=== PATIENT | female | born 1960 | race American Indian/Alaskan Native ===

== ENCOUNTER 2017-09-08 14:26 | Emergency (ER) | payer MEDICARE ==
[2017-09-08 14:40] VITALS: BP 138/73
== END 2017-09-08 16:22 | disposition left against medical advice (07) ==
LOC: ED 14:26
DX: G35 Multiple sclerosis (principal); Z53.21 Procedure and treatment not carried out due to patient leaving prior to being seen by health care provider

== ENCOUNTER 2021-11-26 05:35 | Emergency (ER) | payer MEDICARE ==
[2021-11-26 08:23] VITALS: BP 147/70
[2021-11-26] MEDS ORDERED: diphenhydrAMINE 50 MG/ML VIAL IV ONE (09:47)
[2021-11-26] MEDS ORDERED: SODIUM CHLORIDE 0.9% 1000 ML 1,000 ML IV ONE (09:47)
[2021-11-26] MEDS ORDERED: FAMOTIDINE 20 MG/2 ML INJ IV ONE (09:47)
--- NOTE | 2021-11-26 10:33 | Emergency Department Report ---
ED Allergic Reaction HPI - General Chief complaint: Pain General Stated complaint: ADVERSE REACTION TO MEDS Time Seen by Provider: 11/26/21 09:24 Source: patient Mode of arrival: Ambulatory Limitations: No Limitations - History of Present Illness Initial Comments: This is a 61-year-old female nontoxic, well nourished in appearance, no acute signs of distress presents to the ED with c/o of diffuse itching sensation x several days. Patient stated was taking Abagio and was instrcuted to stop today due to possible allergic reaction. Otherwise, denies any rash. Patient denies any drooling, hoarseness or facial swelling. Patient denies any trauma. She denies any fever, chills, nausea, vomiting, chest pain, shortness of breath, headache, stiff neck, numbness or tingling. Patient states allergies to shellfish and aspirin. MD Complaint: allergic reaction -: days(s) Exposure: medication Symptoms: itching. denies: rash, facial swelling, lip swelling, difficulty swallowing, difficulty breathing, orolingual swelling, hoarseness, syncopy, dizziness, nausea, vomiting, abdominal pain Treatment Prior to Arrival: none Previous Allergy History: none - Related Data Home Medications Medication Instructions Recorded Confirmed Last Taken Amlodipine Besylate/Benazepril 1 each PO DAILY 10/23/13 10/13/14 Unknown [amLODIPine-Benazepril 10/20 mg] Baclofen 20 mg PO TID 10/23/13 10/13/14 Unknown Esomeprazole Magnesium [NexIUM] 40 mg PO QDAY 10/23/13 10/13/14 Unknown Furosemide [Lasix] 40 mg PO DAILY 10/23/13 10/13/14 Unknown Glatiramer Acetate (Nf) [Copaxone 20 ml IJ DAILY 10/23/13 10/13/14 10/22/13 (Nf)] Nebivolol HCl [Bystolic] 10 mg PO QDAY 10/23/13 10/13/14 Unknown Vilazodone HCl [Viibryd] 40 mg PO DAILY 10/23/13 10/13/14 Unknown Baclofen 20 mg PO TID 10/13/14 10/14/14 Unknown Ergocalciferol [Vitamin D2] 1 cap PO QWEEK 10/13/14 10/13/14 Unknown HYDROcodone/APAP 10-325 [Sublette 1 each PO Q8HR PRN 10/13/14 10/13/14 Unknown 10-325 mg TAB] Lubiprostone (Nf) [Amitiza (Nf)] 24 mcg PO QDAY 10/13/14 10/13/14 Unknown Naproxen [Naprosyn TAB] 500 mg PO BID 10/13/14 10/13/14 Unknown Oxybutynin [Ditropan] 5 mg PO BID 10/13/14 10/13/14 Unknown Pregabalin [Lyrica] 150 mg PO TID 10/13/14 10/13/14 Unknown Terazosin (Nf) [Hytrin (Nf)] 5 mg PO DAILY 10/13/14 10/13/14 Unknown levETIRAcetam [Keppra TAB] 1,750 mg PO BID 10/13/14 10/13/14 Unknown Previous Rx's Medication Instructions Recorded Last Taken Type Pregabalin 150 mg PO TID #90 capsule 10/24/13 Unknown Rx Ciprofloxacin HCl [Ciprofloxacin 500 mg PO BID #10 tablet 10/15/14 Unknown Rx TAB] Lacosamide [Vimpat] 200 mg PO BID 30 Days tablet 10/15/14 Unknown Rx Pregabalin 300 mg PO BID 30 Days capsule 10/15/14 Unknown Rx levETIRAcetam [Keppra TAB] 1,750 mg PO BID 30 Days tablet 10/15/14 Unknown Rx diphenhydrAMINE [Benadryl CAP] 25 mg PO Q12H PRN #10 capsule 11/26/21 Unknown Rx Allergies Allergy/AdvReac Type Severity Reaction Status Date / Time aspirin Allergy Unknown Verified 09/08/17 14:41 shellfish derived Allergy Unknown Verified 09/08/17 14:41 ED Review of Systems ROS: Stated complaint: ADVERSE REACTION TO MEDS Other details as noted in HPI Comment: All other systems reviewed and negative Constitutional: denies: chills, fever Eyes: denies: eye pain, eye discharge, vision change ENT: denies: ear pain, throat pain Respiratory: denies: cough, shortness of breath, wheezing Cardiovascular: denies: chest pain, palpitations Endocrine: no symptoms reported Gastrointestinal: denies: abdominal pain, nausea, diarrhea Genitourinary: denies: urgency, dysuria, discharge Musculoskeletal: denies: back pain, joint swelling, arthralgia Skin: denies: rash, lesions, change in color, change in hair/nails, pruritus Neurological: denies: headache, weakness, paresthesias Psychiatric: denies: anxiety, depression Hematological/Lymphatic: denies: easy bleeding, easy bruising ED Past Medical Hx - Past Medical History Previous Medical History?: Yes Hx Hypertension: Yes Hx Congestive Heart Failure: No Hx Diabetes: No Hx Renal Disease: Yes Hx Arthritis: Yes Hx Headaches / Migraines: Yes Hx Seizures: Yes Hx Kidney Stones: Yes Hx Asthma: Yes Hx COPD: Yes Additional medical history: MS, Hay fever - Surgical History Past Surgical History?: Yes Hx Cholecystectomy: Yes Additional Surgical History: tubal ligation, tubal ligation reversal, gastric by pass, pancreas, tonsillectomy - Social History Smoking Status: Never Smoker Substance Use Type: Alcohol - Medications Home Medications: Home Medications Medication Instructions Recorded Confirmed Last Taken Type Amlodipine Besylate/Benazepril 1 each PO DAILY 10/23/13 10/13/14 Unknown History [amLODIPine-Benazepril 10/20 mg] Baclofen 20 mg PO TID 10/23/13 10/13/14 Unknown History Esomeprazole Magnesium [NexIUM] 40 mg PO QDAY 10/23/13 10/13/14 Unknown History Furosemide [Lasix] 40 mg PO DAILY 10/23/13 10/13/14 Unknown History Glatiramer Acetate (Nf) [Copaxone 20 ml IJ DAILY 10/23/13 10/13/14 10/22/13 History (Nf)] Nebivolol HCl [Bystolic] 10 mg PO QDAY 10/23/13 10/13/14 Unknown History Vilazodone HCl [Viibryd] 40 mg PO DAILY 10/23/13 10/13/14 Unknown History Pregabalin 150 mg PO TID #90 capsule 10/24/13 10/13/14 Unknown Rx Baclofen 20 mg PO TID 10/13/14 10/14/14 Unknown History Ergocalciferol [Vitamin D2] 1 cap PO QWEEK 10/13/14 10/13/14 Unknown History HYDROcodone/APAP 10-325 [Sub[place] 1 each PO Q8HR PRN 10/13/14 10/13/14 Unknown History 10-325 mg TAB] Lubiprostone (Nf) [Amitiza (Nf)] 24 mcg PO QDAY 10/13/14 10/13/14 Unknown Histo ry Naproxen [Naprosyn TAB] 500 mg PO BID 10/13/14 10/13/14 Unknown History Oxybutynin [Ditropan] 5 mg PO BID 10/13/14 10/13/14 Unknown History Pregabalin [Lyrica] 150 mg PO TID 10/13/14 10/13/14 Unknown History Terazosin (Nf) [Hytrin (Nf)] 5 mg PO DAILY 10/13/14 10/13/14 Unknown History levETIRAcetam [Keppra TAB] 1,750 mg PO BID 10/13/14 10/13/14 Unknown History Ciprofloxacin HCl [Ciprofloxacin 500 mg PO BID #10 tablet 10/15/14 Unknown Rx TAB] Lacosamide [Vimpat] 200 mg PO BID 30 Days tablet 10/15/14 Unknown Rx Pregabalin 300 mg PO BID 30 Days capsule 10/15/14 Unknown Rx levETIRAcetam [Keppra TAB] 1,750 mg PO BID 30 Days tablet 10/15/14 Unknown Rx diphenhydrAMINE [Benadryl CAP] 25 mg PO Q12H PRN #10 capsule 11/26/21 Unknown Rx ED Physical Exam - General Limitations: No Limitations General appearance: alert, in no apparent distress - Head Head exam: Present: atraumatic, normocephalic - Eye Eye exam: Present: normal appearance, PERRL, EOMI - ENT ENT exam: Present: normal exam, normal orophraynx - Neck Neck exam: Present: normal inspection, full ROM. Absent: tenderness, meningismus, lymphadenopathy - Respiratory Respiratory exam: Present: normal lung sounds bilaterally. Absent: respiratory distress, wheezes, rales, rhonchi, stridor, chest wall tenderness, accessory muscle use, decreased breath sounds, prolonged expiratory - Cardiovascular Cardiovascular Exam: Present: regular rate, normal rhythm, normal heart sounds. Absent: irregular rhythm, systolic murmur, diastolic murmur, rubs, gallop - GI/Abdominal GI/Abdominal exam: Present: soft. Absent: distended, tenderness - Extremities Exam Extremities exam: Present: full ROM - Back Exam Back exam: Present: full ROM - Neurological Exam Neurological exam: Present: alert, oriented X3, normal gait - Psychiatric Psychiatric exam: Present: normal affect, normal mood - Skin Skin exam: Present: warm, dry, intact, normal color. Absent: rash, cyanosis, diaphoretic, erythema, urticaria, vesicles, petechiae, pallor, abrasion, ecchymo sis - Other Other exam information: no angioedema. uvula midline. ED Course Vital Signs 11/26/21 08:19 Temperature 98.1 F Pulse Rate 99 H Respiratory 16 Rate Blood Pressure 147/70 [Left] O2 Sat by Pulse 99 Oximetry - Reevaluation(s) Reevaluation #1: 11/26/21 10:35 Patient is speaking in full sentences with no signs of distress noted. ED Medical Decision Making - Lab Data Result diagrams: 11/26/21 10:14 11/26/21 10:14 Lab Results 11/26/21 11/26/21 11/26/21 Range/Units 10:14 10:14 10:33 WBC 8.1 (4.5-11.0) K/mm3 RBC 4.14 (3.65-5.03) M/mm3 Hgb 11.9 (10.1-14.3) gm/dl Hct 36.8 (30.3-42.9) % MCV 89 (79-97) fl MCH 29 (28-32) pg MCHC 32 (30-34) % RDW 13.5 (13.2-15.2) % Plt Count 188 (140-440) K/mm3 Lymph % (Auto) 46.1 H (13.4-35.0) % [place]hing % (Auto) 9.1 H (0.0-7.3) % Eos % (Auto) 2.4 (0.0-4.3) % Baso % (Auto) 0.6 (0.0-1.8) % Lymph # (Auto) 3.7 (1.2-5.4) K/mm3 Pershing # (Auto) 0.7 (0.0-0.8) K/mm3 Eos # (Auto) 0.2 (0.0-0.4) K/mm3 Baso # (Auto) 0.0 (0.0-0.1) K/mm3 Seg Neutrophils % 41.8 (40.0-70.0) % Seg Neutrophils # 3.4 (1.8-7.7) K/mm3 Sodium 141 (137-145) mmol/L Potassium 3.7 (3.6-5.0) mmol/L Chloride 105.1 (98-107) mmol/L Carbon Dioxide 24 (22-30) mmol/L Anion Gap 16 mmol/L BUN 18 H (7-17) mg/dL Creatinine 0.8 (0.6-1.2) mg/dL Estimated GFR > 60 ml/min BUN/Creatinine Ratio 23 % Glucose 82 (65-100) mg/dL Calcium 9.4 (8.4-10.2) mg/dL Total Bilirubin 0.40 (0.1-1.2) mg/dL AST 31 (5-40) units/L ALT 30 (7-56) units/L Alkaline Phosphatase 127 (35-129) units/L Total Protein 7.8 (6.3-8.2) g/dL Albumin 4.7 (3.9-5) g/dL Albumin/Globulin Ratio 1.5 % Urine Color Colorless (Yellow) Urine Turbidity Clear (Clear) Urine pH 8.0 H (5.0-7.0) Ur Specific [place] 1.006 (1.003-1.030) Urine Protein <15 mg/dl (Negative) mg/dL Urine Glucose (UA) Neg (Negative) mg/dL Urine Ketones Neg (Negative) mg/dL Urine Blood Neg (Negative) Urine Nitrite Neg (Negative) Urine Bilirubin Neg (Negative) Urine Urobilinogen < 2.0 (<2.0) mg/dL Ur Leukocyte Esterase Neg (Negative) Urine WBC (Auto) 1.0 (0.0-6.0) /HPF Urine RBC (Auto) 5.0 (0.0-6.0) /HPF U Epithel Cells (Auto) 1.0 (0-13.0) /HPF Urine Bacteria (Auto) 1+ (Negative) /HPF - Medical Decision Making This is a 61-year-old female that presents with allergic reaction. Patient is stable was examined by me. There is no facial swelling. No angioedema. There is no cellulitis. No hoarseness. Patient received 1 L normal saline, Benadryl, and Pepcid in the ED IV. Patient was instructed not to operate any machinery after discharge due to possible drowsiness of Benadryl. Patient stated that a family member will drive patient home after discharge. Patient is discharged with prednisone and Benadryl. Patient was referred to Follow-up with a primary care doctor in 3-5 days or if symptoms worsen and continue return to emergency room as soon as possible. At time of discharge, the patient does not seem toxic or ill in appearance. No acute signs of distress noted. Patient agrees to discharge treatment plan of care. No further questions noted by the patient. Critical care attestation.: If time is entered above; I have spent that time in minutes in the direct care o f this critically ill patient, excluding procedure time. ED Disposition Clinical Impression: Allergic reaction Qualifiers: Encounter type: initial encounter Qualified Code(s): T78.40XA - Allergy, unspecified, initial encounter Disposition: HOME / SELF CARE / HOMELESS Is pt being admited?: No Does the pt Need Aspirin: No Condition: Stable Additional Instructions: Follow-up with a primary care doctor in 3-5 days or if symptoms worsen and continue return to emergency room as soon as possible. Prescriptions: diphenhydrAMINE [Benadryl CAP] 25 mg PO Q12H PRN #10 capsule PRN Reason: Itching Referrals: FERMIN CLANCY MD [Primary Care Provider] - 3-5 Days CAMERON REZA MD [Staff Physician] - 3-5 Days Time of Disposition: 11:33
[2021-11-26 11:01] LABS: Bilirubin,Urine NEG (Negative); Blood,Urine NEG (Negative); Color,Urine Colorless (Yellow); Protein,Urine <15 mg/dL mg/dL (Negative); Urobilinogen,Urine < 2.0 mg/dL (<2.0)
[2021-11-26 11:03] LABS: Basophils % (Auto) 0.6 % (0.0-1.8); Eosinophils # (Auto) 0.2 K/mm3 (0.0-0.4); Eosinophils % (Auto) 2.4 % (0.0-4.3); Hematocrit 36.8 % (30.3-42.9); Hemoglobin 11.9 gm/dl (10.1-14.3); Lymphocytes # (Auto) 3.7 K/mm3 (1.2-5.4); Lymphocytes % (Auto) 46.1 % (13.4-35.0); Mean Corpuscular HGB Conc 32 % (30-34); Mean Corpuscular Volume 89 fl (79-97); Monocytes # (Auto) 0.7 K/mm3 (0.0-0.8); Monocytes % (Auto) 9.1 % (0.0-7.3); Red Blood Count 4.14 M/mm3 (3.65-5.03); Red Cell Distribution Width 13.5 % (13.2-15.2)
[2021-11-26 11:04] LABS: Bacteria,Urine 1+ /HPF (Negative)
[2021-11-26 11:04] LABS: Platelet Count 188 K/mm3 (140-440)
[2021-11-26 11:24] LABS: Alanine Aminotransferase 30 units/L (7-56); Albumin 4.7 g/dL (3.9-5); BUN/Creatinine Ratio 23; Blood Urea Nitrogen 18 mg/dL (7-17); Calcium 9.4 mg/dL (8.4-10.2); Hemolysis Index 3
== END 2021-11-26 11:55 | disposition home or self-care (01) ==
LOC: ED 05:35
DX: T78.40XA Allergy, unspecified, initial encounter (principal); X58.XXXA Exposure to other specified factors, initial encounter; Z88.6 Allergy status to analgesic agent; Z91.013 Allergy to seafood; I10 Essential (primary) hypertension; F10.20 Alcohol dependence, uncomplicated; J45.909 Unspecified asthma, uncomplicated
CPT/HCPCS: 36415; 80053; 81001; 85025; 96361; 96374; 96375; 99283; J1200; J3490; J7030